=== PATIENT | male | born 1945 | race Caucasian/White ===

== ENCOUNTER 2018-03-31 01:05 | Emergency (ER) | payer MEDICARE ==
[2018-03-31] MEDS ORDERED: Diltiazem 25 MG/5 ML SDV IVPUSH ONE (01:33)
[2018-03-31] MEDS ORDERED: Sodium Chloride 0.9% 10 ML Syringe FLUSH PRN (01:33)
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
[2018-03-31] MEDS ORDERED: Lactated Ringers 1,000 ML IV SCH (01:45)
[2018-03-31 02:53] VITALS: BP 132/67
== END 2018-03-31 03:06 | disposition home or self-care (01) ==
LOC: JP.ED 01:05
DX: I48.91 Unspecified atrial fibrillation (principal); I25.10 Atherosclerotic heart disease of native coronary artery without angina pectoris; J44.9 Chronic obstructive pulmonary disease, unspecified; E03.9 Hypothyroidism, unspecified; Z88.1 Allergy status to other antibiotic agents; Z79.899 Other long term (current) drug therapy; Z79.82 Long term (current) use of aspirin; Z95.0 Presence of cardiac pacemaker
CPT/HCPCS: 36415; 80053; 83605; 83880; 84484; 85025; 85610; 93005; 96361; 96374; 99284; J3490; J7050; J7120